=== PATIENT | male | born 1975 | race Hispanic/Latino ===

== ENCOUNTER 2021-07-19 06:45 | Observation (INO) | payer OTHER ==
[2021-07-17 10:44] LABS: BASOPHILS % 0.7 % (0.0-1.0); EOSINOPHILS # (AUTO) 0.1 (0.0-0.4); EOSINOPHILS % 2.3 % (0.0-6.0); HEMATOCRIT 46.6 % (38.2-49.6); HEMOGLOBIN 15.6 g/dL (14.0-18.0); LYMPHOCYTES # (AUTO) 1.6 (1.0-3.2); LYMPHOCYTES % 28.2 % (18.0-39.1); MEAN CORPUSCULAR HEMOGLOBIN 31.5 pg (28-32); MEAN CORPUSCULAR HGB CONC 33.5 g/dL (31-35); MONOCYTES # (AUTO) 0.5 (0.2-0.8); NEUTROPHILS # (AUTO) 3.4 (2.1-6.9); NEUTROPHILS % 59.4 % (38.7-80.0); PLATELET COUNT 180 x10e3/uL (140-360); RED BLOOD COUNT 4.96 x10e6/uL (4.3-5.7); RED CELL DISTRIBUTION WIDTH 13.9 % (11.7-14.4)
[2021-07-17 10:56] LABS: INR 0.92; PROTHROMBIN TIME 13.2 seconds (11.9-14.5)
[2021-07-17 10:57] LABS: PARTIAL THROMBOPLASTIN TIME 23.1 seconds (23.8-35.5)
[2021-07-17 11:03] LABS: ANION GAP 15.9 mmol/L (8-16); CREATININE, SERUM 1.01 mg/dL (0.72-1.25); POTASSIUM 3.9 mmol/L (3.5-5.1)
[~2021-07-19] VITALS: Ht 177.8 cm; Wt 83.9 kg
[2021-07-19] VITALS (7 sets, daily range): BP systolic 127–171; BP diastolic 59–103
[~2021-07-19 06:45] MED LIST: TESTOSTERONE IM; [UNRECOGNIZED DRUG - OTHER] PO
[2021-07-19] MEDS ORDERED: PROMETHAZINE HCL (IM) 25 MG/ML VIAL IM PRN (08:00)
[2021-07-19] MEDS ORDERED: ZOLPIDEM TARTRATE 5 MG TAB PO PRN (08:00)
[2021-07-19] MEDS ORDERED: ONDANSETRON HCL INJ 2MG/ML 2ML 2 MG/ML VIAL IV PRN (08:00)
[2021-07-19] MEDS ORDERED: HYDROCODON-ACE1 EA12 PO (08:00)
[2021-07-19] MEDS ORDERED: Morphine 4mg Syringe 4 MG/ML INJ IM PRN (08:00)
[2021-07-19] MEDS ORDERED: HYDROMORPHONE 2MG/ML 2 MG/ML ML IV PRN (08:00)
[2021-07-19] MEDS ORDERED: ACETAMINOPHEN 325 MG TAB PO PRN (08:00)
[2021-07-19] MEDS ORDERED: MAGNESIUM/ALUMINUM/SIMETHICONE 30 ML UDC PO PRN (08:00)
[2021-07-19] MEDS ORDERED: [UNRECOGNIZED DRUG - OTHER] PO SCH (09:00)
[2021-07-19] MEDS: LACTATED RINGER'S 1,000 ML IV SCH ×3 (09:30→22:00)
[2021-07-19] MEDS: CARISOPRODOL 350 MG TAB PO PRN ×3 (09:39→22:12)
[2021-07-19] MEDS: OXYCODONE/ACETAMINOPHEN 5-325 1 EACH TABLET PO PRN ×3 (09:39→22:12)
[2021-07-19] MEDS ORDERED: POVIDONE IODINE 0.05% 0.05 % ML PO ONE (11:48)
[2021-07-19] MEDS ORDERED: LIDOCAINE HCL 2% LOCAL INJ 5 ML SDV VIAL INJ ONE (11:48)
[2021-07-19] MEDS ORDERED: NEOSTIGMINE 1 MG/ML 10ML VIAL ONE (11:48)
[2021-07-19] MEDS ORDERED: SEVOFLURANE INHAL SOLN 250 ML PEN BTL ONE (11:48)
[2021-07-19] MEDS ORDERED: GLYCOPYRROLATE INJ 0.2 MG/ML VIAL ONE (11:48)
[2021-07-19] MEDS ORDERED: DEXAMETHASONE SOD PHOS INJ 4 MG/ML SDV ONE (11:48)
[2021-07-19] MEDS ORDERED: ROCURONIUM BROMIDE 10 MG/ML 5ML VIAL IV ONE (11:48)
[2021-07-19] MEDS ORDERED: ONDANSETRON HCL INJ 2MG/ML 2ML 2 MG/ML VIAL ONE (11:48)
[2021-07-19] MEDS ORDERED: LIDOCAINE HCL (LTA) 4 ML SOLN ONE (11:48)
[2021-07-19] MEDS ORDERED: PROPOFOL IV EMULSION 10 MG/ML 20 ML VIAL ONE (11:48)
[2021-07-19] MEDS ORDERED: IBUPROFEN 800 MG/200 ML BAG IV ONE (11:48)
[2021-07-19] MEDS ORDERED: ACETAMINOPHEN 1000 MG/100 ML IV ONE (11:48)
[2021-07-19] MEDS ORDERED: FENTANYL CITRATE/PF 100MCG/2 ML INJ ONE (12:35)
[2021-07-19] MEDS ORDERED: MIDAZOLAM HCL 2 MG/2 ML VIAL ONE (12:35)
[2021-07-19] MEDS ORDERED: SODIUM CHLORIDE 0.9% 250ML 250 ML ONE (14:18)
[2021-07-20] VITALS: BP 117/80
[2021-07-20 04:00] VITALS: BP 118/82
[2021-07-20 08:00] VITALS: BP 130/89
[2021-07-20 08:10] VITALS: BP 130/89
[2021-07-20] MEDS: OXYCODONE/ACETAMINOPHEN 5-325 1 EACH TABLET PO PRN (08:30)
[2021-07-20] MEDS: CARISOPRODOL 350 MG TAB PO PRN (08:32)
== END 2021-07-20 09:50 | disposition home or self-care (01) ==
LOC: OR 06:45 → PACU V 07:55 → MED/SURG 08:48
PROVIDERS: ADMIT Neurological Surgery; ATTEND Neurological Surgery
DX: M50.123 Cervical disc disorder at C6-C7 level with radiculopathy (principal); Z20.822 Contact with and (suspected) exposure to COVID-19; Z01.818 Encounter for other preprocedural examination
CPT/HCPCS: 20931; 22551; 22845; 36415; 71046; 72040; 76000; 80048; 85025; 85610; 85730; 86850; 86900; 88304; 88311; 93005; C1713; G0378 ×2; J0131; J0690 ×2; J1100; J2001; J2250; J2405; J2704; J2710; J3010; J7050; J7121; U0002